=== PATIENT | female | born 1995 | race African-American/Black ===

== ENCOUNTER 2017-02-06 20:03 | Emergency (ER) | payer OTHER ==
[~2017-02-06 20:03] MED LIST: INSU100I13 SQ; INSU100I15 SQ; LISI-334 PO; METH5TAB6 PO; PROP60CA8 PO
[2017-02-06 20:15] VITALS: BP 138/88
--- NOTE | 2017-02-06 20:50 | ED.ADGEN ---
Past History Past Medical History: Diabetes, Other Past Surgical History: No Surgical History Alcohol Use: None Drug Use: None Adult General HPI HPI Patient is a 21-year-old woman, history of type 1 diabetes mellitus, diagnosed age 11, which she controls with both long-acting and short-acting insulin, and Graves' disease, for which she takes methimazole. Patient presents the emergency department with her mother with report of hypoglycemia. Per mother's report, she found the patient home, lying in bed, minimally responsive, and was concerned that her sugar was either very high or very low. She states daughter was not wearing her usual continuous monitoring bracelet, and she could not find the glucometer, therefore she called EMS arrived on scene and found an Accu -Chek of 26. Patient was given IM glucagon, glucose increased to 40 and 60, that point the patient was awake and alert, was able to take by mouth intake. Patient is ambulating upon arousing emergency department, GCS of 15, baseline mental status, denying all complaints. Accu-Chek in the ED is 223. Patient states that she last took her floor connecting a short acting insulin at 4:00 in the morning. She states she has not taken any insulin since that time, states that she had a decreased appetite today, and has not had much to eat or drink. Denies any fevers, any chills, any nausea or vomiting, any weakness, numbness, tingling, chest pain, shortness of breath, recent travel or surgery, any sick contacts or exposures. Review of Systems Review of Systems Constitutional: Denies fever or chills [] Eyes: Denies change in visual acuity, redness, or eye pain [] HENT: Denies nasal congestion or sore throat [] Respiratory: Denies cough or shortness of breath [] Cardiovascular: No additional information not addressed in HPI [] GI: Denies abdominal pain, nausea, vomiting, bloody stools or diarrhea [] : Denies dysuria or hematuria [] Musculoskeletal: Denies back pain or joint pain [] Integument: Denies rash or skin lesions [] Neurologic: Denies headache, focal weakness or sensory changes [] altered mental status with hyperglycemia which is now resolved. Endocrine: Denies polyuria or polydipsia [] Allergies Allergies Allergies Coded Allergies Type Severity Reaction Last Updated Verified amoxicillin Allergy Intermediate HIVES 01/19/15 No Physical Exam Physical Exam Constitutional: Well developed, well nourished, no acute distress, non-toxic appearance. [] HENT: Normocephalic, atraumatic, bilateral external ears normal, oropharynx moist, no oral exudates, nose normal. ] Eyes: PERRLA, EOMI, conjunctiva normal, no discharge. Mild exophthalmos. Neck: Normal range of motion, no tenderness, supple, no stridor. Cardiovascular:Heart rate regular rhythm, no murmur, S1, S2, rubs or gallops. [] Lungs & Thorax: Bilateral breath sounds clear to auscultation, no wheezing, rhonchi, rales. No chest or crepitus or tenderness. [] Abdomen: Bowel sounds normal, soft, no tenderness, no masses, no rebound, rigidity, no guarding, no pulsatile masses. [] Skin: Warm, dry, no erythema, no rash. [] Back: No tenderness, no CVA tenderness. [] Extremities: No tenderness, no cyanosis, no clubbing, ROM intact, no edema. Negative Homans sign. [] Neurologic: Alert and oriented X 3, normal motor function, normal sensory function, no focal deficits noted. [] Psychologic: Affect normal, judgement normal, mood normal. [] Current Patient Data Vital Signs Vital Signs Date Time Temp Pulse Resp B/P (MAP) Pulse Ox O2 Delivery O2 Flow Rate FiO2 02/06/17 20:15 98.0 110 20 97 Room Air Lab Results Laboratory Tests Test 02/06/17 20:15 02/06/17 21:37 02/06/17 21:40 02/06/17 22:18 Glucose (Fingerstick) 223 mg/dL (70-99) H 252 mg/dL (70-99) H POC Urine HCG, Qualitative hcg negative (Negative) White Blood Count 11.2 x10^3/uL (4.0-11.0) H Red Blood Count 4.97 x10^6/uL (3.50-5.40) Hemoglobin 13.2 g/dL (12.0-15.5) Hematocrit 40.3 % (36.0-47.0) Mean Corpuscular Volume 81 fL (79-100) Mean Corpuscular Hemoglobin 27 pg (25-35) Mean Corpuscular Hemoglobin Concent 33 g/dL (31-37) Red Cell Distribution Width 12.8 % (11.5-14.5) Platelet Count 264 x10^3/uL (140-400) Neutrophils (%) (Auto) 88 % (31-73) H Lymphocytes (%) (Auto) 10 % (24-48) L Monocytes (%) (Auto) 3 % (0-9) Eosinophils (%) (Auto) 0 % (0-3) Basophils (%) (Auto) 0 % (0-3) Neutrophils # (Auto) 9.8 x10^3uL (1.8-7.7) H Lymphocytes # (Auto) 1.1 x10^3/uL (1.0-4.8) Monocytes # (Auto) 0.3 x10^3/uL (0.0-1.1) Eosinophils # (Auto) 0.0 x10^3/uL (0.0-0.7) Basophils # (Auto) 0.0 x10^3/uL (0.0-0.2) Urine Collection Type Unknown Urine Color Straw Urine Clarity Clear Urine pH 5.0 Urine Specific [place] 1.015 Urine Protein Neg (NEG-TRACE) Urine Glucose (UA) 500 mg/dL (NEG) Urine Ketones (Stick) Neg mg/dL (NEG) Urine Blood Neg (NEG) Urine Nitrite Neg (NEG) Urine Bilirubin Neg (NEG) Urine Urobilinogen Dipstick 0.2 mg/dL (0.2 mg/dL) Urine Leukocyte Esterase Neg (NEG) Urine RBC 0 /HPF (0-2) Urine WBC 0 /HPF (0-4) Urine Squamous Epithelial Cells Occ /LPF Urine Bacteria 0 /HPF (0-FEW) Sodium Level 137 mmol/L (136-145) Potassium Level 4.4 mmol/L (3.5-5.1) Chloride Level 103 mmol/L (98-107) Carbon Dioxide Level 26 mmol/L (21-32) Anion Gap 8 (6-14) Blood Urea Nitrogen 11 mg/dL (7-20) Creatinine 0.6 mg/dL (0.6-1.0) Estimated GFR (Cockcroft-Gault) 149.9 Glucose Level 292 mg/dL (70-99) H Calcium Level 9.0 mg/dL (8.5-10.1) Urine Opiates Screen Neg (NEG) Urine Methadone Screen Neg (NEG) Urine Barbiturates Neg (NEG) Urine Phencyclidine Screen Neg (NEG) Urine Amphetamine/Methamphetamine Neg (NEG) Urine Benzodiazepines Screen Neg (NEG) Urine Cocaine Screen Neg (NEG) Urine Cannabinoids Screen Neg (NEG) Urine Ethyl Alcohol Neg (NEG) EKG EKG Not indicated. [] Radiology/Procedures Radiology/Procedures Chest x-ray: One view: Normal cardiac pulmonary silhouette, no infiltrates, no effusion, no soft tissue or bony abnormalities identified. As interpreted by me. [] Course & Med Decision Making Course & Med Decision Making Pertinent Labs and Imaging studies reviewed. (See chart for details) Lengthy discussion at bedside with patient and mother, patient has recently made gains in terms of exercise, lower her A1c, and is planning to follow up promptly with her safety consultant for likely adjustment of medication. I discussed with patient that I am concerned the fact that she has had no insulin since 4:00 in the morning, and is presenting with symptoms at this time that there may be more potentially then an iatrogenic cause. Patient states that she was feeling well, but however was seen this morning by her mother around 10:00 in the morning that time was feeling well. After discussion, patient is agreeable to receiving screening laboratory studies and evaluation in the emergency department to rule out any occult cause for hypoglycemia, with some observation and tracking of her glucose in the ED. Patient resting comfortably, with mother at bedside taking oral fluids. Urinalysis didn't reveal any evidence of infection, chest x-ray unremarkable, as were the remainder of laboratory studies, patient with a glucose of 293, electrolytes within normal limits. After over 2 hours of observation in the ED, patient remains comfortable , without any concerning symptoms, Accu-Chek is now 250. I did discuss findings as above with patient and mother at bedside, patient states she is feeling well , and would like to go home at this time, patient's mother states she will keep an eye on her overnight, patient will continue to use medications as directed, and will plan to follow-up promptly with the safety consultant for additional evaluation to determine if she requires adjustments of her regimen, patient will ensure that she eats regularly when taking her insulin. We discussed concerning symptoms that prompt return to the emergency department, patient voiced understanding and agreement, was provided with a work note, discharged home in stable condition with mother with plan and precautions as above. Final Impression Final Impression [] Problems: Dragon Disclaimer Dragon Disclaimer This electronic medical record was generated, in whole or in part, using a voice recognition dictation system. Departure: Disposition: HOME, SELF-CARE Condition: IMPROVED MICHELLE NICHOLE DO Feb 06, 2017 20:50
[2017-02-06 21:59] LABS: BASO % 0 % (0-3); EOS % 0 % (0-3); HEMATOCRIT 40.3 % (36.0-47.0); HEMOGLOBIN 13.2 g/dL (12.0-15.5); LYMPH # 1.1 x10^3/uL (1.0-4.8); LYMPH % 10 % (24-48); MEAN CORPUSCULAR HEMOGLOBIN 27 pg (25-35); MEAN CORPUSCULAR HGB CONC 33 g/dL (31-37); MEAN CORPUSCULAR VOLUME 81 fL (79-100); MONO # 0.3 x10^3/uL (0.0-1.1); MONO % 3 % (0-9); NEUT # 9.8 x10^3uL (1.8-7.7); NEUT % 88 % (31-73); PLATELET COUNT 264 x10^3/uL (140-400); RED BLOOD COUNT 4.97 x10^6/uL (3.50-5.40); RED CELL DISTRIBUTION WIDTH 12.8 % (11.5-14.5); WHITE BLOOD COUNT 11.2 x10^3/uL (4.0-11.0)
[2017-02-06 22:06] LABS: CREATININE 0.6 mg/dL (0.6-1.0); GFR 149.9; POTASSIUM 4.4 mmol/L (3.5-5.1)
[2017-02-06 22:09] LABS: BACTERIA,URINE 0 /HPF (0-FEW); BILIRUBIN,URINE NEG (NEG); CLARITY,URINE CLEAR; COLOR,URINE STRAW; GLUCOSE,URINE 500 mg/dL (NEG); NITRITE,URINE NEG (NEG); RBC,URINE 0 /HPF (0-2); SQUAMOUS EPITHELIAL CELL,UR OCC /LPF; UROBILINOGEN,URINE 0.2 mg/dL (0.2 mg/dL); WBC,URINE 0 /HPF (0-4)
[2017-02-06 22:14] LABS: BARBITURATES NEG (NEG); BENZODIAZEPINES NEG (NEG); CANNABINOIDS NEG (NEG); COCAINE NEG (NEG); METHADONE NEG (NEG); OPIATES NEG (NEG); PHENCYCLIDINE NEG (NEG)
[2017-02-06 22:15] LABS: AMPHETAMINE/METHAMPHETAMINE NEG (NEG)
--- NOTE | 2017-02-07 07:46 | RAD ---
Indication hypoglycemia. Change in mental status. Protocol study. A single view of the chest was obtained. No prior imaging is available. The heart and pulmonary vessels and mediastinum appear normal. The lungs are clear. IMPRESSION: No acute or focal process seen in the chest
== END 2017-02-06 22:33 | disposition home or self-care (01) ==
LOC: ER 20:03
DX: E10.649 Type 1 diabetes mellitus with hypoglycemia without coma (principal); R41.82 Altered mental status, unspecified; Z79.4 Long term (current) use of insulin; Z88.1 Allergy status to other antibiotic agents
CPT/HCPCS: 36415; 71010; 80048; 80305; 80320; 81001; 81025; 82947; 85027; G0481; 99285-25

== ENCOUNTER 2017-03-31 12:53 | Emergency (ER) | payer OTHER ==
[2017-03-31] MEDS ORDERED: IV NORMAL SALINE 1,000ML 1,000 ML IV ONE (13:30)
[2017-03-31 14:29] LABS: BASO % 0 % (0-3); EOS % 0 % (0-3); HEMATOCRIT 35.9 % (36.0-47.0); HEMOGLOBIN 12.1 g/dL (12.0-15.5); LYMPH # 1.2 x10^3/uL (1.0-4.8); LYMPH % 38 % (24-48); MEAN CORPUSCULAR HEMOGLOBIN 27 pg (25-35); MEAN CORPUSCULAR HGB CONC 34 g/dL (31-37); MEAN CORPUSCULAR VOLUME 79 fL (79-100); MONO # 0.3 x10^3/uL (0.0-1.1); MONO % 11 % (0-9); NEUT # 1.6 x10^3uL (1.8-7.7); NEUT % 51 % (31-73); PLATELET COUNT 252 x10^3/uL (140-400); RED BLOOD COUNT 4.56 x10^6/uL (3.50-5.40); RED CELL DISTRIBUTION WIDTH 12.8 % (11.5-14.5); WHITE BLOOD COUNT 3.1 x10^3/uL (4.0-11.0)
[2017-03-31 14:36] LABS: POTASSIUM ISTAT 4.5 mmol/L (3.5-5.0)
[2017-03-31 14:37] LABS: HEMOGLOBIN ISTAT 12.2 gm/dL
--- NOTE | 2017-03-31 14:43 | PHYS DOC ---
Past History Past Medical History: Diabetes, Hyperthyroid, Other Past Surgical History: No Surgical History Alcohol Use: None Drug Use: None Adult General Chief Complaint Chief Complaint: BLOOD SUGAR PROBLEM HPI HPI 21-year-old female with history of type 1 diabetes presents this morning after having low blood sugar symptomatically. She reports taking her clergy and insulin last night as normal which has not been changed for more than a week. Today she checked her blood sugar after feeling lightheaded and kind of sweaty it was reported to be 24. EMS was called. EMS gave IV dextrose which improved her blood sugar. Currently she is asymptomatic feeling much better. Onset today. Location blood. Duration intermittent. Alleviated by IV sugar. Review of systems is negative for chest pain shortness of breath abdominal pain nausea vomiting. All other review of systems is negative unless otherwise noted in history of present illness. ED course: 21-year-old female presenting with symptomatically hyperglycemia. Patient reports no increase in her insulin over the past week. She reports eating regularly including this morning. She denies any symptoms currently. Blood glucose upon arrival was 120. Otherwise blood work obtained which showed normal kidney function and otherwise unremarkable. negative. Urinalysis negative. Patient was given oral meal and then subsequent discharged home to follow up with her primary care physician. The patient was then discharged home in stable condition to follow up with their primary care physician over the next 2-3 days. They were to return if their symptoms worsened or if they were concerned for any reason. [id number] discharge instructions and return precautions were given. Patient's questions were answered to their satisfaction. Patient is comfortable plan. Review of Systems Review of Systems SEE ABOVE. Current Medications Current Medications Current Medications Medications (Trade) Dose Ordered Sig/Felicia Start Time Stop Time Status Last Admin Dose Admin Sodium Chloride 1,000 ml @ 1,000 mls/hr 1X ONCE 03/31/17 13:30 03/31/17 14:29 DC 03/31/17 14:12 1,000 MLS/HR Allergies Allergies Allergies Coded Allergies Type Severity Reaction Last Updated Verified amoxicillin Allergy Intermediate HIVES 01/19/15 No Physical Exam Physical Exam Constitutional: Well developed, well nourished, no acute distress, non-toxic appearance. [] HENT: Normocephalic, atraumatic, bilateral external ears normal, oropharynx moist, no oral exudates, nose normal. [] Eyes: PERRLA, EOMI, conjunctiva normal, no discharge. [] Neck: Normal range of motion, no tenderness, supple, no stridor. [] Cardiovascular:Heart rate regular rhythm, no murmur [] Lungs & Thorax: Bilateral breath sounds clear to auscultation [] Abdomen: Bowel sounds normal, soft, no tenderness, no masses, no pulsatile masses. [] Skin: Warm, dry, no erythema, no rash. [] Back: No tenderness, no CVA tenderness. [] Extremities: No tenderness, no cyanosis, no clubbing, ROM intact, no edema. [] Neurologic: Alert and oriented X 3, normal motor function, normal sensory function, no focal deficits noted. [] Psychologic: Affect normal, judgement normal, mood normal. [] Current Patient Data Vital Signs Vital Signs Date Time Temp Pulse Resp B/P (MAP) Pulse Ox O2 Delivery O2 Flow Rate FiO2 03/31/17 12:53 98.0 107 25 99 Room Air Lab Results Laboratory Tests Test 03/31/17 14:10 03/31/17 14:24 White Blood Count 3.1 x10^3/uL (4.0-11.0) L Red Blood Count 4.56 x10^6/uL (3.50-5.40) Hemoglobin 12.1 g/dL (12.0-15.5) POC Hemoglobin 12.2 gm/dL Hematocrit 35.9 % (36.0-47.0) L POC Hematocrit 36 % Mean Corpuscular Volume 79 fL (79-100) Mean Corpuscular Hemoglobin 27 pg (25-35) Mean Corpuscular Hemoglobin Concent 34 g/dL (31-37) Red Cell Distribution Width 12.8 % (11.5-14.5) Platelet Count 252 x10^3/uL (140-400) Neutrophils (%) (Auto) 51 % (31-73) Lymphocytes (%) (Auto) 38 % (24-48) Monocytes (%) (Auto) 11 % (0-9) H Eosinophils (%) (Auto) 0 % (0-3) Basophils (%) (Auto) 0 % (0-3) Neutrophils # (Auto) 1.6 x10^3uL (1.8-7.7) L Lymphocytes # (Auto) 1.2 x10^3/uL (1.0-4.8) Monocytes # (Auto) 0.3 x10^3/uL (0.0-1.1) Eosinophils # (Auto) 0.0 x10^3/uL (0.0-0.7) Basophils # (Auto) 0.0 x10^3/uL (0.0-0.2) POC Sodium 142 mmol/L (135-145) POC Potassium 4.5 mmol/L (3.5-5.0) POC Chloride 106 mmol/L (98-110) POC Total CO2 24 mmol/L (23-32) Anion Gap 17 mmol/L (6-14) H POC Blood Urea Nitrogen 7 mg/dL (8-26) L POC Creatinine 0.3 mg/dL (0.5-1.4) L Glucose Level 120 mg/dL (60-99) H POC Ionized Calcium (Antoine) 1.28 mmol/L (1.13-1.32) POC Urine HCG, Qualitative hcg negative (Negative) EKG EKG [] Radiology/Procedures Radiology/Procedures [] Course & Med Decision Making Course & Med Decision Making Pertinent Labs and Imaging studies reviewed. (See chart for details) [] Dragon Disclaimer Dragon Disclaimer This chart was dictated in whole or in part using Voice Recognition software in a busy, high-work load, and often noisy Emergency Department environment. It may contain unintended and wholly unrecognized errors or omissions. Departure Departure: Impression: Primary Impression: Hypoglycemia Additional Impression: Diabetic hypoglycemia Disposition: 01 HOME, SELF-CARE Condition: STABLE Referrals: NASRA HARDEN MD (PCP) Patient Instructions: Hypoglycemia (Low Blood Sugar) Additional Instructions: Thank you for allowing us to participate in your care today. Followup with your primary care physician in 3 days if your symptoms do not improve. Call your Primary Doctor tomorrow and inform them of your visit today. If you do not have a primary care provider you can ask for a list of our primary care providers. Return to the emergency department you have any new or concerning findings. This should be evaluated by the primary care physician and any necessary consulting services for continued management within a few days after discharge. Return to emergency room if you have any new or concerning symptoms including but not limited to fever, chills, nausea, vomiting, intractable pain, any new rashes, chest pain, shortness of air, uncontrolled bleeding, difficulty breathing, and/or vision loss. You may have been prescribed medication that can change in your level of thinking and ability to operate machinery. These medications include hydrocodone and Ativan. Also, Benadryl has been known to do this as well. Be sure to check with your pharmacist and ask if the medications you've prescribed can affect your level of consciousness. I recommend not operating heavy machinery or driving while on medication such as these. Problem Qualifiers VIVI FLORES MD Mar 31, 2017 14:43
[2017-03-31 14:44] LABS: ALBUMIN 2.9 g/dL (3.4-5.0); BILIRUBIN,URINE NEG (NEG); CLARITY,URINE HAZY; COLOR,URINE YELLOW; DIRECT BILIRUBIN 0.1 mg/dL (0.0-0.2); GLUCOSE,URINE 500 mg/dL (NEG); NITRITE,URINE NEG (NEG); TOTAL BILIRUBIN 0.4 mg/dL (0.2-1.0); TOTAL PROTEIN 6.4 g/dL (6.4-8.2); UROBILINOGEN,URINE 0.2 mg/dL (0.2 mg/dL)
[2017-03-31 14:45] LABS: BACTERIA,URINE FEW /HPF (0-FEW); SQUAMOUS EPITHELIAL CELL,UR MANY /LPF
[2017-03-31 14:58] VITALS: BP 132/79
== END 2017-03-31 15:20 | disposition home or self-care (01) ==
LOC: ER 12:53
DX: E10.649 Type 1 diabetes mellitus with hypoglycemia without coma (principal); E05.90 Thyrotoxicosis, unspecified without thyrotoxic crisis or storm; Z79.4 Long term (current) use of insulin; Z88.1 Allergy status to other antibiotic agents
CPT/HCPCS: 36415; 80047; 80076; 81001; 81025; 82947; 83690; 85025; 96360; 99284-25; J7030

== ENCOUNTER 2017-04-02 17:06 | Emergency (ER) | payer OTHER ==
[~2017-04-02] VITALS: Ht 165.1 cm; Wt 81.0 kg
[2017-04-02] MEDS ORDERED: FAMOTIDINE 20 MG/2 ML VIAL ONE (18:20)
[2017-04-02 18:26] LABS: BASO % 0 % (0-3); EOS % 0 % (0-3); HEMATOCRIT 41.8 % (36.0-47.0); LYMPH # 0.9 x10^3/uL (1.0-4.8); LYMPH % 12 % (24-48); MEAN CORPUSCULAR HEMOGLOBIN 26 pg (25-35); MEAN CORPUSCULAR HGB CONC 34 g/dL (31-37); MEAN CORPUSCULAR VOLUME 79 fL (79-100); MONO # 0.2 x10^3/uL (0.0-1.1); MONO % 3 % (0-9); NEUT # 6.3 x10^3uL (1.8-7.7); NEUT % 85 % (31-73); PLATELET COUNT 289 x10^3/uL (140-400); RED BLOOD COUNT 5.29 x10^6/uL (3.50-5.40); RED CELL DISTRIBUTION WIDTH 12.8 % (11.5-14.5); WHITE BLOOD COUNT 7.4 x10^3/uL (4.0-11.0)
[2017-04-02 18:29] LABS: ALBUMIN 3.7 g/dL (3.4-5.0); CREATININE 0.5 mg/dL (0.6-1.0); POTASSIUM 4.6 mmol/L (3.5-5.1); TOTAL BILIRUBIN 0.9 mg/dL (0.2-1.0); TOTAL PROTEIN 7.5 g/dL (6.4-8.2)
[2017-04-02] MEDS ORDERED: FAMOTIDINE 20 MG/2 ML VIAL IVP ONE (18:30)
[2017-04-02] MEDS ORDERED: IV NORMAL SALINE 1,000ML 1,000 ML IV ONE (18:30)
[2017-04-02] MEDS ORDERED: ONDANSETRON PF 4 MG/2 ML VIAL. IV ONE (19:30)
--- NOTE | 2017-04-02 20:18 | RAD ---
Ultrasound of the right upper quadrant of the abdomen 04/02/2017 Clinical history: Right upper quadrant abdominal pain. TECHNIQUE: A real-time ultrasound examination of the right upper quadrant of the abdomen was performed. Multiple images were obtained. FINDINGS: The gallbladder is well-distended. No gallstones are visualized. The gallbladder wall thickness is within normal limits. No pericholecystic fluid is seen. The common bile duct measures 2 mm in diameter which is within normal limits. The liver is normal in size measuring 15.2 cm in length. Mild intrahepatic biliary ductal dilatation is seen. No focal abnormality of the liver is noted. The visualized portions of the pancreas and right kidney are within normal limits. IMPRESSION: Mild intrahepatic biliary ductal dilatation. Electronically signed by: Ulices More MD (04/02/2017 8:15 PM) [facility]
[2017-04-02 20:30] VITALS: BP 130/57
[2017-04-02] MEDS ORDERED: HALOPERIDOL LACT 5 MG/ML VIAL. IVP ONE (20:30)
--- NOTE | 2017-04-02 22:17 | PHYS DOC ---
Past History Past Medical History: Diabetes Past Surgical History: No Surgical History Alcohol Use: Occasionally Drug Use: None Adult General Chief Complaint Chief Complaint: BLOOD SUGAR PROBLEM HPI HPI Patient is a 20-year-old insulin-dependent a female with history Graves' disease currently off of methimazole who presents with nausea and vomiting upon waking this morning. Patient last took insulin last evening. She has not been able to eat or drink today due to nausea and vomiting. She also reports epigastric pain tenderness. Patient also reports possible hypoglycemic episode this morning hitting her head. Patient denies headache, change of vision, neck pain. Blood sugar is 101 on ED arrival. No fever chills or sweats. Patient has active Graves' disease and was taken off methimazole in preparation for her radioactive iodine uptake thyroid ablation procedure. 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 Patient denies any other acute symptoms or complaints. She has no prior surgical history. Last menstrual period was 3 weeks ago. Patient was seen in the emergency department for low blood sugar episode 2 days ago and had a negative test at that time. Denies drugs and alcohol. Patient is accompanied at bedside by her mother. Review of Systems Review of Systems Review of symptoms as per history of present illness. All other review symptoms are negative. Current Medications Current Medications Current Medications Medications (Trade) Dose Ordered Sig/Felicia Start Time Stop Time Status Last Admin Dose Admin Famotidine (Pepcid) 20 mg STK-MED ONCE 04/02/17 18:20 04/02/17 18:21 DC Haloperidol Lactate (Haldol) 1.25 mg 1X ONCE 04/02/17 20:30 04/02/17 20:31 DC 04/02/17 20:27 1.25 MG Ondansetron HCl (Zofran) 8 mg 1X ONCE 04/02/17 19:30 04/02/17 19:31 DC 04/02/17 18:28 8 MG Sodium Chloride 1,000 ml @ 1,000 mls/hr 1X ONCE 04/02/17 18:30 04/02/17 19:29 DC 04/02/17 18:27 1,000 MLS/HR Allergies Allergies Allergies Coded Allergies Type Severity Reaction Last Updated Verified amoxicillin Allergy Intermediate HIVES 01/19/15 No Physical Exam Physical Exam Constitutional: Well developed, well nourished, no acute distress, non-toxic appearance. [] HENT: Normocephalic, atraumatic, bilateral external ears normal, oropharynx moist, no oral exudates, nose normal. [] Eyes: PERRLA, EOMI, exophthalmos, conjunctiva normal, no discharge. [] Neck: Normal range of motion, no tenderness, supple, no stridor. [] Cardiovascular: Tachycardic [] Lungs & Thorax: Bilateral breath sounds clear to auscultation [] Abdomen: Bowel sounds normal, soft, epigastric/right upper quadrant pain, tenderness, no masses, no pulsatile masses. [] Skin: Warm, dry, no erythema, no rash. [] Back: No tenderness, no CVA tenderness. [] Extremities: No tenderness, no cyanosis, no clubbing, ROM intact, no edema. [] Neurologic: Alert and oriented X 3, normal motor function, normal sensory function, no focal deficits noted. [] Psychologic: Affect, anxious. [] Current Patient Data Vital Signs Vital Signs Date Time Temp Pulse Resp B/P (MAP) Pulse Ox O2 Delivery O2 Flow Rate FiO2 04/02/17 20:30 131 16 130/57 (81) 99 Room Air 04/02/17 17:28 98.7 Lab Results Laboratory Tests Test 04/02/17 17:25 04/02/17 17:52 04/02/17 19:27 Glucose (Fingerstick) 101 mg/dL (70-99) H White Blood Count 7.4 x10^3/uL (4.0-11.0) # Red Blood Count 5.29 x10^6/uL (3.50-5.40) Hemoglobin 14.0 g/dL (12.0-15.5) Hematocrit 41.8 % (36.0-47.0) Mean Corpuscular Volume 79 fL (79-100) Mean Corpuscular Hemoglobin 26 pg (25-35) Mean Corpuscular Hemoglobin Concent 34 g/dL (31-37) Red Cell Distribution Width 12.8 % (11.5-14.5) Platelet Count 289 x10^3/uL (140-400) Neutrophils (%) (Auto) 85 % (31-73) H Lymphocytes (%) (Auto) 12 % (24-48) L Monocytes (%) (Auto) 3 % (0-9) Eosinophils (%) (Auto) 0 % (0-3) Basophils (%) (Auto) 0 % (0-3) Neutrophils # (Auto) 6.3 x10^3uL (1.8-7.7) Lymphocytes # (Auto) 0.9 x10^3/uL (1.0-4.8) L Monocytes # (Auto) 0.2 x10^3/uL (0.0-1.1) Eosinophils # (Auto) 0.0 x10^3/uL (0.0-0.7) Basophils # (Auto) 0.0 x10^3/uL (0.0-0.2) Platelet Estimate Pending Sodium Level 139 mmol/L (136-145) Potassium Level 4.6 mmol/L (3.5-5.1) Chloride Level 104 mmol/L (98-107) Carbon Dioxide Level 25 mmol/L (21-32) Anion Gap 10 (6-14) Blood Urea Nitrogen 10 mg/dL (7-20) Creatinine 0.5 mg/dL (0.6-1.0) L Estimated GFR (Cockcroft-Gault) 185.0 BUN/Creatinine Ratio 20 (6-20) Glucose Level 101 mg/dL (70-99) H Calcium Level 10.0 mg/dL (8.5-10.1) Total Bilirubin 0.9 mg/dL (0.2-1.0) Aspartate Amino Transferase (AST) 32 U/L (15-37) Alanine Aminotransferase (ALT) 67 U/L (14-59) H Alkaline Phosphatase 139 U/L (46-116) H Total Protein 7.5 g/dL (6.4-8.2) Albumin 3.7 g/dL (3.4-5.0) Albumin/Globulin Ratio 1.0 (1.0-1.7) Lipase 46 U/L (73-393) L Maternal Serum HCG Beta Subunit 1 mIU/mL (0-6) EKG EKG [EKG: Sinus tach, rate 131, no acute ST-T wave changes, left atrial abnormality , QTC 448. No acute ST-T wave changes. EKG interpreted by this physician.] Radiology/Procedures Radiology/Procedures [Gallbladder ultrasound: Distended gallbladder, no pericholecystic fluid, gallbladder wall thickening, ductal dilatation per radiology report.] Course & Med Decision Making Course & Med Decision Making Pertinent Labs and Imaging studies reviewed. (See chart for details) [Patient nausea and vomiting improved while in the ED. She is euglycemic without current evidence of DKA. Patient remains tachycardic and is anxious with concern for thyrotoxicosis. Unfortunately, TSH and T3-T4 labs are send outs at this facility. Case reviewed with Dr. Parker billing collections specialist for internal medicine. Recommendations are to transferred patient to a facility with endocrinology. Dr. Alvarado at [facility] accepts patient. Her condition at time of transfer is stable ] Dragon Disclaimer Dragon Disclaimer This chart was dictated in whole or in part using Voice Recognition software in a busy, high-work load, and often noisy Emergency Department environment. It may contain unintended and wholly unrecognized errors or omissions. Departure Departure: Impression: Primary Impression: Thyrotoxicosis Additional Impression: Nausea & vomiting Disposition: 02 XFER [facility] Condition: STABLE Referrals: NASRA HARDEN MD (PCP) Problem Qualifiers JAJA NELSON DO Apr 02, 2017 22:17
[2017-04-02 22:54] LABS: % LYMPHS 14 % (24-48); % MONOS 1 % (0-10); % SEGS 85 % (35-66)
[2017-04-02 23:09] LABS: PLT ESTIMATE ADEQUATE (ADEQUATE)
--- NOTE | 2017-04-03 07:15 | EKG ---
[address] [address] Test Date: 2017-04-02 Test Time: 21:09:20 Pat Name: JOSE KRAMER Department: Room: Gender: F Vegetable Cook: : 1995 Requested By: JAJA NELSON Order Number: [id number] Reading MD: Slade Garcia Measurements Intervals [place] Rate: 131 P: 90 [place]: 122 QRS: 23 QRSD: 88 T: 64 QT: 300 QTc: 448 Interpretive Statements SINUS TACHYCARDIA Electronically Signed On 04-09-2017 10:09:20 CDT by Slade Garcia
== END 2017-04-02 22:44 | disposition short-term general hospital (02) ==
LOC: ER 17:06
DX: E05.00 Thyrotoxicosis with diffuse goiter without thyrotoxic crisis or storm (principal); R11.2 Nausea with vomiting, unspecified; E11.9 Type 2 diabetes mellitus without complications; Z88.1 Allergy status to other antibiotic agents
CPT/HCPCS: 36415; 76705; 80053; 82947; 83690; 84702; 85007; 85025; 93005; 96361; 96374; 96375; 99285; J1630; J2405; S0028; J7030

== ENCOUNTER 2017-12-03 05:14 | Emergency (ER) | payer OTHER, BC ==
[~2017-12-03] VITALS: Ht 165.1 cm; Wt 80.4 kg
--- NOTE | 2017-12-03 05:18 | ED.ADGEN ---
Past History Past Medical History: Diabetes Past Surgical History: No Surgical History Alcohol Use: Occasionally Drug Use: None Adult General Chief Complaint Chief Complaint ".. I ve been tired... and just completed final.. and I ve been nauseate the last two days..." HPI HPI Patient is a 22 year old female who presents with above hx and complains of nausea. Pt. has hx. of DM type I and tyroid disorder. Pt. does also have hx of depression and anxiety. Pt. denies bad food, travel, specific ill contact. Glucose level have been 200-400 recently while taking finals. Pt. current glucose is 106. Last ate at 1800 hrs. Pt. has mild epigastric discomfort. No hx dark stools. Pt. denies any current suicidal ideation. Pt. unable to produce urine on initial ED encounter. Mother is at bedside. Review of Systems Review of Systems Constitutional: Denies fever or chills [] Eyes: Denies change in visual acuity, redness, or eye pain [] HENT: Denies nasal congestion or sore throat [] Respiratory: Denies cough or shortness of breath [] Cardiovascular: No additional information not addressed in HPI [] GI: epigastric abdominal pain,. Denies vomiting, bloody stools or diarrhea [] Complaints of nausea. : Denies dysuria or hematuria [] Musculoskeletal: Denies back pain or joint pain [] Integument: Denies rash or skin lesions [] Neurologic: Denies headache, focal weakness or sensory changes [] Endocrine: Denies polyuria or polydipsia [] All other systems were reviewed and found to be within normal limits, except as documented in this note. Family History Family History Non-contributory Current Medications Current Medications Current Medications Medications (Trade) Dose Ordered Sig/Felicia Start Time Stop Time Status Last Admin Dose Admin Famotidine (Pepcid) 20 mg 1X ONCE 12/03/17 06:00 12/03/17 06:01 Lactated Ringer's 1,000 ml @ 1,000 mls/hr Q1H 12/03/17 06:00 12/03/17 06:59 Ondansetron HCl (Zofran Odt) 8 mg 1X ONCE 12/03/17 05:45 12/03/17 05:46 Allergies Allergies Allergies Coded Allergies Type Severity Reaction Last Updated Verified amoxicillin Allergy Intermediate HIVES 6/30/15 No Physical Exam Physical Exam Constitutional: mild distress, non-toxic appearance. [] HENT: Normocephalic, atraumatic, bilateral external ears normal, oropharynx dry , no oral exudates, nose normal. [] Eyes: PERRLA, EOMI, conjunctiva normal, no discharge. [] Neck: Normal range of motion, no tenderness, supple, no stridor. []Palpable thyroid. Cardiovascular:Heart rate regular rhythm, no murmur [] Lungs & Thorax: Bilateral breath sounds equal at apex auscultation [] Abdomen: Bowel sounds normal, soft, mild epigastric tenderness, no masses, no pulsatile masses. [] Skin: Warm, dry, no erythema, no rash. [] Back: No tenderness, no CVA tenderness. [] Extremities: No tenderness, no cyanosis, no clubbing, ROM intact, no edema. [] No psoas or obturator. Neurologic: Alert and oriented X 3, normal motor function, normal sensory function, no focal deficits noted. [] Psychologic: Affect flat, judgement normal, mood normal. [] EKG EKG [] Radiology/Procedures Radiology/Procedures [] Course & Med Decision Making Course & Med Decision Making Pertinent Labs and Imaging studies reviewed. (See chart for details). Labs pending at 0600. Reviewed pt. with Dr. Wooten- He will make disposition of pt. [] Final Impression Final Impression 1. Nausea[] Dragon Disclaimer Dragon Disclaimer This electronic medical record was generated, in whole or in part, using a voice recognition dictation system. TAYLOR HENDRIX MD December 03, 2017 05:18
[2017-12-03] MEDS ORDERED: ONDANSETRON ODT 4 MG TAB.RAPDIS PO ONE ×2 (05:45→06:00)
[2017-12-03] MEDS ORDERED: FAMOTIDINE 20 MG TABLET PO ONE (06:00)
[2017-12-03] MEDS ORDERED: IV RINGERS SOLUTION,LACTATED 1,000 ML IV SCH (06:00)
--- NOTE | 2017-12-03 06:08 | PHYS DOC ---
Past History Past Medical History: Diabetes Past Surgical History: No Surgical History Alcohol Use: Occasionally Drug Use: None Adult General Chief Complaint Chief Complaint: NAUSEA/VOMITING/DIARRHEA HPI HPI I am taking over this patient in signout from Dr. Elizondo. Please see his note for further information. Patient is a 22-year-old female that presents with mild epigastric pain and nausea. He is a type I diabetic and his blood sugar is currently controlled. Review of Systems Review of Systems Constitutional: Denies fever or chills [] Eyes: Denies change in visual acuity, redness, or eye pain [] HENT: Denies nasal congestion or sore throat [] Respiratory: Denies cough or shortness of breath [] Cardiovascular: No additional information not addressed in HPI [] GI: epigastric pain, nausea [] : Denies dysuria or hematuria [] Musculoskeletal: Denies back pain or joint pain [] Integument: Denies rash or skin lesions [] Neurologic: Denies headache, focal weakness or sensory changes [] Endocrine: Denies polyuria or polydipsia [] All other systems were reviewed and found to be within normal limits, except as documented in this note. Current Medications Current Medications Current Medications Medications (Trade) Dose Ordered Sig/Felicia Start Time Stop Time Status Last Admin Dose Admin Famotidine (Pepcid) 20 mg 1X ONCE 12/03/17 06:00 12/03/17 06:01 Lactated Ringer's 1,000 ml @ 1,000 mls/hr Q1H 12/03/17 06:00 12/03/17 06:59 Ondansetron HCl (Zofran Odt) 8 mg 1X ONCE 12/03/17 05:45 12/03/17 05:46 DC Allergies Allergies Allergies Coded Allergies Type Severity Reaction Last Updated Verified amoxicillin Allergy Intermediate HIVES 01/19/15 No Penicillins Allergy Unknown 12/03/17 Yes Physical Exam Physical Exam Constitutional: Well developed, well nourished, no acute distress, non-toxic appearance. [] HENT: Normocephalic, atraumatic, bilateral external ears normal, oropharynx moist, no oral exudates, nose normal. [] Eyes: PERRLA, EOMI, conjunctiva normal, no discharge. [] Neck: Normal range of motion, no tenderness, supple, no stridor. [] Cardiovascular:Heart rate regular rhythm, no murmur [] Lungs & Thorax: Bilateral breath sounds clear to auscultation [] Abdomen: Bowel sounds normal, soft, mild epigastric tenderness. [] Skin: Warm, dry, no erythema, no rash. [] Back: No tenderness, no CVA tenderness. [] Extremities: No tenderness, no cyanosis, no clubbing, ROM intact, no edema. [] Neurologic: Alert and oriented X 3, normal motor function, normal sensory function, no focal deficits noted. [] Psychologic: Affect normal, judgement normal, mood normal. [] Current Patient Data Lab Results Laboratory Tests Test 12/03/17 05:41 Glucose (Fingerstick) 108 mg/dL (70-99) H EKG EKG [] Radiology/Procedures Radiology/Procedures CT ABD PELV W/ IV CONTRST ONLY Indication: [id number] Omni 300 75cc: Epigastric pain, nausea x 1 week, borderline hepatomegaly on ultrasound today Exposure: One or more of the following individualized dose reduction techniques were utilized for this examination: 1. Automated exposure control 2. Adjustment of the mA and/or kV according to patient size 3. Use of iterative reconstruction technique. Comparison: None are available. Contrast: Intravenous contrast. No oral contrast per request. Lower thorax: Lung bases are clear. Pneumoperitoneum:No gross pneumoperitoneum. Liver: Liver measures about 16 cm cephalocaudal without focal lesion. Note there is mild periportal low-density, surrounding the portal venous structures. Spleen: Borderline enlarged, 12.5 cm. Pancreas: Unremarkable Adrenals:No evidence of mass. Kidneys:Unremarkable Gallbladder: Poorly distended. Mild low-density surrounding the gallbladder. No calcified stone. Aorta: Abdominal aorta is nonaneurysmal Lymph nodes: No significant enlargement GI tract: No bowel obstruction. Gastric wall thickening, likely due to incomplete distention. No evidence of an acute colitis. A structure which may represent a noninflamed appendix is seen in the right lower quadrant. Visualization is difficult due to the lack of much fat and lack of oral contrast. Ascites: No gross ascites. Urinary bladder: Mild wall thickening considering the degree of distention. No evidence of pelvic mass. Bones: No destructive process. IMPRESSION: 1. Mild periportal low density or edema in the liver. Finding is nonspecific, can be associated with hepatitis. 2. Borderline splenomegaly. 3. Mild low-density around the gallbladder compatible with mild wall thickening or fluid. No calcified gallstone. 4. Mild urinary bladder wall thickening, correlate for mild cystitis. Electronically signed by: Bonilla Rocha MD (12/03/2017 11:15 AM) [id number] LIMITED ABDOMINAL ULTRASOUND History: Right upper quadrant pain, nausea, elevated liver enzymes. Comparison: Ultrasound abdomen April 08, 2011 Procedure: Transabdominal ultrasound images are obtained. Findings: Examination is technically difficult secondary to bowel gas. Visualized pancreas is unremarkable. Liver is normal in echogenicity. No focal hepatic masses are identified. Right hepatic lobe measures 16.2 cm in length, borderline enlarged. Gallbladder appears partially contracted. No cholelithiasis or cholecystitis is seen. Common bile duct measures normally at 2 mm in diameter. Right kidney measures 11.9 cm in length. There is no evidence of stone or hydronephrosis. Visualized IVC demonstrates normal caliber. Impression: 1. Borderline hepatomegaly. Electronically signed by: Bonilla Suárez MD (12/03/2017 8:45 AM) [facility] [] Course & Med Decision Making Course & Med Decision Making Pertinent Labs and Imaging studies reviewed. (See chart for details) Since being in the ED, she has had difficulty providing urine. We will hydrate her. The patient has extremely elevated AST, ALT, bili and direct bili. I'm concerned for gall stone obstruction. I ordered right upper quadrant ultrasound. The ultrasound shows no gallbladder dysfunction. Common bile duct is normal in caliber. No stones were seen. I will order CT of the abdomen and pelvis to rule out any other potential causes of obstruction given her elevated bilirubin and direct bilirubin. CT scan showed mildly thickened gallbladder wall , but no other abnormalities. Acute hepatitis is still in the differential. I discussed the case with the hospitalist, Dr. Parker and he would like the patient transferred to [facility] for further evaluation and management. Discussed this with the patient and she is willing to be transferred for admission. She will go by ambulance. [] Dragon Disclaimer Dragon Disclaimer This electronic medical record was generated, in whole or in part, using a voice recognition dictation system. Departure Departure: Referrals: NASRA HARDEN MD (PCP) JAJA CACERES DO December 03, 2017 06:08
[2017-12-03 07:14] LABS: BASO % 1 % (0-3); EOS % 0 % (0-3); HEMOGLOBIN 13.6 g/dL (12.0-15.5); LYMPH # 1.9 x10^3/uL (1.0-4.8); LYMPH % 47 % (24-48); MEAN CORPUSCULAR HEMOGLOBIN 28 pg (25-35); MEAN CORPUSCULAR HGB CONC 33 g/dL (31-37); MEAN CORPUSCULAR VOLUME 85 fL (79-100); MONO # 0.6 x10^3/uL (0.0-1.1); MONO % 14 % (0-9); NEUT # 1.6 x10^3uL (1.8-7.7); NEUT % 39 % (31-73); PLATELET COUNT 259 x10^3/uL (140-400); RED BLOOD COUNT 4.83 x10^6/uL (3.50-5.40); RED CELL DISTRIBUTION WIDTH 16.5 % (11.5-14.5); WHITE BLOOD COUNT 4.1 x10^3/uL (4.0-11.0)
[2017-12-03 07:33] LABS: ALBUMIN 2.8 g/dL (3.4-5.0); CALCIUM 8.5 mg/dL (8.5-10.1); CREATININE 0.5 mg/dL (0.6-1.0); DIRECT BILIRUBIN 2.8 mg/dL (0.0-0.2); GFR 183.4
[2017-12-03 07:38] LABS: TOTAL BILIRUBIN 3.6 mg/dL (0.2-1.0)
[2017-12-03 08:35] LABS: BARBITURATES NEG (NEG); BENZODIAZEPINES NEG (NEG); CANNABINOIDS NEG (NEG); COCAINE NEG (NEG); METHADONE NEG (NEG); OPIATES NEG (NEG); PHENCYCLIDINE NEG (NEG)
[2017-12-03 08:36] LABS: AMPHETAMINE/METHAMPHETAMINE NEG (NEG)
[2017-12-03] MEDS ORDERED: PROCHLORPERAZINE 10 MG/2 ML VIAL. IM ONE (08:40)
[2017-12-03 08:41] LABS: BACTERIA,URINE 0 /HPF (0-FEW); BILIRUBIN,URINE SMALL (NEG); CLARITY,URINE CLEAR; COLOR,URINE AMBER; GLUCOSE,URINE NEG (NEG); NITRITE,URINE NEG (NEG); UROBILINOGEN,URINE 0.2 mg/dL (0.2 mg/dL); WBC,URINE RARE /HPF (0-4)
[2017-12-03 08:42] LABS: SQUAMOUS EPITHELIAL CELL,UR FEW /LPF
--- NOTE | 2017-12-03 08:48 | RAD ---
LIMITED ABDOMINAL ULTRASOUND History: Right upper quadrant pain, nausea, elevated liver enzymes. Comparison: Ultrasound abdomen April 08, 2011 Procedure: Transabdominal ultrasound images are obtained. Findings: Examination is technically difficult secondary to bowel gas. Visualized pancreas is unremarkable. Liver is normal in echogenicity. No focal hepatic masses are identified. Right hepatic lobe measures 16.2 cm in length, borderline enlarged. Gallbladder appears partially contracted. No cholelithiasis or cholecystitis is seen. Common bile duct measures normally at 2 mm in diameter. Right kidney measures 11.9 cm in length. There is no evidence of stone or hydronephrosis. Visualized IVC demonstrates normal caliber. Impression: 1. Borderline hepatomegaly. Electronically signed by: Bonilla Suárez MD (12/03/2017 8:45 AM) [place] [id number]
[2017-12-03] MEDS ORDERED: IOHEXOL 300 MG/ML 75 ML VIAL. IV ONE (10:30)
--- NOTE | 2017-12-03 11:18 | RAD ---
CT ABD PELV W/ IV CONTRST ONLY Indication: [id number] Omni 300 75cc: Epigastric pain, nausea x 1 week, borderline hepatomegaly on ultrasound today Exposure: One or more of the following individualized dose reduction techniques were utilized for this examination: 1. Automated exposure control 2. Adjustment of the mA and/or kV according to patient size 3. Use of iterative reconstruction technique. Comparison: None are available. Contrast: Intravenous contrast. No oral contrast per request. Lower thorax: Lung bases are clear. Pneumoperitoneum:No gross pneumoperitoneum. Liver: Liver measures about 16 cm cephalocaudal without focal lesion. Note there is mild periportal low-density, surrounding the portal venous structures. Spleen: Borderline enlarged, 12.5 cm. Pancreas: Unremarkable Adrenals:No evidence of mass. Kidneys:Unremarkable Gallbladder: Poorly distended. Mild low-density surrounding the gallbladder. No calcified stone. Aorta: Abdominal aorta is nonaneurysmal Lymph nodes: No significant enlargement GI tract: No bowel obstruction. Gastric wall thickening, likely due to incomplete distention. No evidence of an acute colitis. A structure which may represent a noninflamed appendix is seen in the right lower quadrant. Visualization is difficult due to the lack of much fat and lack of oral contrast. Ascites: No gross ascites. Urinary bladder: Mild wall thickening considering the degree of distention. No evidence of pelvic mass. Bones: No destructive process. IMPRESSION: 1. Mild periportal low density or edema in the liver. Finding is nonspecific, can be associated with hepatitis. 2. Borderline splenomegaly. 3. Mild low-density around the gallbladder compatible with mild wall thickening or fluid. No calcified gallstone. 4. Mild urinary bladder wall thickening, correlate for mild cystitis. Electronically signed by: Bonilla Rocha MD (12/03/2017 11:15 AM) [facility]
[2017-12-03 14:12] VITALS: BP 134/80
== END 2017-12-03 14:31 | disposition short-term general hospital (02) ==
LOC: ER 05:14
DX: R16.0 Hepatomegaly, not elsewhere classified (principal); R74.0 Nonspecific elevation of levels of transaminase and lactic acid dehydrogenase [LDH]; R74.8 Abnormal levels of other serum enzymes; E80.7 Disorder of bilirubin metabolism, unspecified; E10.9 Type 1 diabetes mellitus without complications; F32.9 Major depressive disorder, single episode, unspecified; F41.9 Anxiety disorder, unspecified; Z88.0 Allergy status to penicillin; Z88.1 Allergy status to other antibiotic agents
CPT/HCPCS: 36415; 74177; 76705; 80048; 80076; 80307; 81001; 82150; 82947; 83690; 84443; 85025; 96372; 99285; J0780; J7120; Q0162; Q9967; G0479

== ENCOUNTER 2018-02-20 23:01 | Emergency (ER) | payer OTHER, BC ==
[~2018-02-20] VITALS: Ht 165.1 cm; Wt 83.9 kg
[2018-02-20 23:05] VITALS: BP 146/81
[2018-02-21] MEDS ORDERED: AZITHROMYCIN 250 MG TABLET. PO ONE (00:30)
[2018-02-21] MEDS ORDERED: AZIT250T PO (00:32)
--- NOTE | 2018-02-21 00:33 | PHYS DOC ---
Past History Past Medical History: Diabetes, Other Past Surgical History: Other Alcohol Use: Occasionally Drug Use: None Adult General Chief Complaint Chief Complaint: SORE THROAT HPI HPI Patient is a [22] year old [female] who presents with complaining of sore throat. Patient complaining of sore throat for the last 3 days as a constant pain with subjective fever without cough and congestion or shortness of breath and sick contact.[ Patient denies sick contact.] Review of Systems Review of Systems Constitutional: Denies fever or chills [] Eyes: Denies change in visual acuity, redness, or eye pain [] HENT: Denies nasal congestion , reports sore throat [] Respiratory: Denies cough or shortness of breath [] Cardiovascular: No additional information not addressed in HPI [] GI: Denies abdominal pain, nausea, vomiting, bloody stools or diarrhea [] : Denies dysuria or hematuria [] Musculoskeletal: Denies back pain or joint pain [] Integument: Denies rash or skin lesions [] Neurologic: Denies headache, focal weakness or sensory changes [] Endocrine: Denies polyuria or polydipsia [] All other systems were reviewed and found to be within normal limits, except as documented in this note. Current Medications Current Medications Current Medications Medications (Trade) Dose Ordered Sig/Felicia Start Time Stop Time Status Last Admin Dose Admin Azithromycin (Zithromax) 500 mg 1X ONCE 02/21/18 00:15 02/21/18 00:16 UNV Allergies Allergies Allergies Coded Allergies Type Severity Reaction Last Updated Verified Penicillins Allergy Intermediate Hives 12/03/17 Yes amoxicillin Allergy Intermediate HIVES 01/19/15 No Physical Exam Physical Exam Constitutional: Well developed, well nourished, mild distress, non-toxic appearance. [] HENT: Normocephalic, atraumatic, bilateral external ears normal, enlarge tonsils , more in right side, oropharynx moist, no oral exudates, nose normal. [] Eyes: PERRLA, EOMI, conjunctiva normal, no discharge. [] Neck: Normal range of motion, no tenderness, supple, no stridor, cervical lymphadenopathy. [] Cardiovascular:Heart rate regular rhythm, no murmur [] Lungs & Thorax: Bilateral breath sounds clear to auscultation [] Skin: Warm, dry, no erythema, no rash. [] Extremities: No tenderness, no cyanosis, no clubbing, ROM intact, no edema. [] Neurologic: Alert and oriented X 3, normal motor function, normal sensory function, no focal deficits noted. [] Psychologic: Affect normal, judgement normal, mood normal. [] Current Patient Data Vital Signs Vital Signs Date Time Temp Pulse Resp B/P (MAP) Pulse Ox O2 Delivery O2 Flow Rate FiO2 02/20/18 23:05 98.9 63 16 98 Room Air EKG EKG [] Radiology/Procedures Radiology/Procedures [] Course & Med Decision Making Course & Med Decision Making discharge: I've spoken with the patient and/or caregivers. I've explained the patient's condition, diagnosis and treatment plan based on information available to me at this time. I've answered the patient's and/or caregivers questions and addressed any concerns. The patient and/or caregivers have a good understanding the patient's diagnosis, condition and treatment plan as can be expected at this point. Vital signs have been stabilized. The patient's condition is stable for discharge from the emergency department. The patient will pursue further outpatient evaluation with her primary care provider or other designated consulting physician as outlined in the discharge instructions. Patient and/or caregivers are agreeable to this plan of care and follow-up instructions have been explained in detail. The patient and/or caregivers have received these instructions in written format and expressed understanding of these discharge instructions. The patient and her caregivers are aware that if any significant change in condition or worsening of symptoms should prompt him to immediately return to this of the closest emergency department. If an emergent department is not readily available I would encourage him to call 911. Annetteon Disclaimer Dragon Disclaimer This electronic medical record was generated, in whole or in part, using a voice recognition dictation system. Departure Departure: Impression: Primary Impression: Acute pharyngitis Disposition: HOME, SELF-CARE (at 0031) Condition: STABLE Referrals: NASRA HARDEN MD (PCP) Patient Instructions: Viral and Bacterial Pharyngitis Additional Instructions: Drink plenty of liquids Follow-up with your primary care physician in 3-5 days Return to ER if not getting better Scripts Azithromycin (ZITHROMAX) 250 Mg Tablet 1 PKG PO UD, #1 PKG Prov: RINKU NEWELL MD 02/21/18 RINKU NEWELL MD Feb 21, 2018 00:33
== END 2018-02-21 00:42 | disposition home or self-care (01) ==
LOC: ER 23:01
DX: J02.9 Acute pharyngitis, unspecified (principal); E11.9 Type 2 diabetes mellitus without complications; Z88.0 Allergy status to penicillin; Z88.1 Allergy status to other antibiotic agents
CPT/HCPCS: 87880; 99283; J0456

== ENCOUNTER 2019-05-15 15:59 | Emergency (ER) | payer OTHER ==
[~2019-05-15] VITALS: Ht 165.1 cm; Wt 81.6 kg
[~2019-05-15 15:59] MED LIST changes: +AZIT250T PO; +PROP60CA36 PO; -PROP60CA8 PO
--- NOTE | 2019-05-15 16:33 | PHYS DOC ---
Past History Past Medical History: Anxiety, Depression, Diabetes, Other Past Surgical History: Other Smoking: Non-smoker Alcohol Use: Occasionally Drug Use: None Adult General Chief Complaint Chief Complaint: SUICDAL IDEATION HPI HPI the patient is a pleasant 23-year-old female who presents to the emergency [facility] for evaluation. She states that she has been having suicidal thoughts for the past while, related to anxiety and stress at work, in the setting of underlying chronic anxiety and depression. She states that she has had increasing thoughts of "ending it all". She does not have an active plan, she does not own firearms. She takes BuSpar and Lexapro for anxiety and depression. She does not have any hallucinations. She denies any drug or alcohol use of significance. There are no alleviating or exacerbating factors to her symptoms. She states that she has never been hospitalized before and has no prior suicide attempts. She is agreeable to hospitalization to help manage her symptoms. She is somewhat tearful on initial presentation and interviewed. Patient is a type I diabetic. She states that she has been generally compliant with her insulin, but did not take her insulin today, but did eat a lot of carbohydrates. She states she normally takes 1 unit of insulin for every 8 g of carbohydrates that she eats. She also takes 40 units of Lantus at bedtime. Review of Systems Review of Systems Constitutional: Denies fever or chills [] Eyes: Denies change in visual acuity, redness, or eye pain [] HENT: Denies nasal congestion or sore throat [] Respiratory: Denies cough or shortness of breath [] Cardiovascular: The patient denies any shortness of breath, chest pain, palpitations, or orthopnea [] GI: Denies abdominal pain, nausea, vomiting, bloody stools or diarrhea [] : Denies dysuria or hematuria. Currently on menses. [] Musculoskeletal: Denies back pain or joint pain [] Integument: Denies rash or skin lesions [] Neurologic: Denies headache, focal weakness or sensory changes [] Endocrine: Denies polyuria or polydipsia [] All other systems were reviewed and found to be within normal limits, except as documented in this note. Allergies Allergies Allergies Coded Allergies Type Severity Reaction Last Updated Verified Penicillins Allergy Intermediate Hives 12/03/17 Yes amoxicillin Allergy Intermediate HIVES 01/19/15 No Physical Exam Physical Exam PHYSICAL EXAM: CONSTITUTIONAL: Well developed, well nourished HEAD: normocephalic, atraumatic EENT: PERRL, EOMI. Conjunctivae normal color, sclerae non-icteric; moist mucous membranes. NECK: Supple, non-tender; no meningismus. LUNGS: Lungs CTA, breathing even and unlabored. Normal air movement. HEART: Regular rate and rhythm, no murmur CHEST: No deformity; non-tender ABDOMEN: The abdomen is soft, and non-tender, no masses or bruits. EXTREM: Normal ROM; no deformity, no calf tenderness. Normal pulses palpable in all extremities. There is no pedal edema. SKIN: No rash; no diaphoresis NEURO: Alert; normal speech and cognition; CN's grossly intact; strength grossly intact without focal deficit. BACK: No CVA TTP. PSYCHIATRIC: Depressed affect, voices suicidal ideation, without a plan. Tearful. Linear thought processes without sign of psychosis. EKG EKG []Normal sinus rhythm a rate of 83 bpm, normal axis, normal intervals. Nonspecific ST/T changes are present. Radiology/Procedures Radiology/Procedures [] Course & Med Decision Making Course & Med Decision Making Pertinent Labs studies reviewed. (See chart for details) []10:15 PM: Patient was seen by tele-psychiatry, and we both agree that the patient is appropriate for hospitalization. Efforts to find the patient in mental health will be undertaken at this time. Blood sugar has improved to the mid 200s. Pt's evening Lantus has been given. 05/16/19 6:00 AM: Patient condition remains stable. Care will be turned over to Dr. Villatoro at shift change, pending disposition and final placement. Report given. Dragon Disclaimer Dragon Disclaimer This electronic medical record was generated, in whole or in part, using a voice recognition dictation system. Departure Departure: Impression: Primary Impression: Depression Additional Impressions: Suicidal ideation Hyperglycemia Disposition: HOME/RESIDENCE PRIOR TO ADM Condition: STABLE Referrals: NASRA HARDEN MD (PCP) Problem Qualifiers TOBY CONN MD May 15, 2019 16:33
--- NOTE | 2019-05-15 16:52 | EKG ---
[address] [address] Test Date: 2019-05-15 Test Time: 16:49:01 Pat Name: JOSE KRAMER Department: Room: Gender: F Associate Editor: OSIRIS : 1995 Requested By: TOBY CONN Order Number: [id number] Reading MD: Measurements Intervals [employer] Rate: 83 P: 49 WY: 182 QRS: 19 QRSD: 96 T: 30 QT: 370 QTc: 435 Interpretive Statements SINUS RHYTHM QRS(T) CONTOUR ABNORMALITY CONSIDER ANTEROLATERAL MYOCARDIAL DAMAGE POSSIBLY ABNORMAL ECG RI6.01 Compared to ECG 04/02/2017 21:09:20 Sinus tachycardia no longer present
[2019-05-15 17:23] LABS: BASO % 0 % (0-3); EOS % 0 % (0-3); HEMATOCRIT 43.1 % (36.0-47.0); HEMOGLOBIN 14.1 g/dL (12.0-15.5); LYMPH # 1.2 x10^3/uL (1.0-4.8); LYMPH % 28 % (24-48); MEAN CORPUSCULAR HEMOGLOBIN 31 pg (25-35); MEAN CORPUSCULAR HGB CONC 33 g/dL (31-37); MEAN CORPUSCULAR VOLUME 93 fL (79-100); MONO # 0.2 x10^3/uL (0.0-1.1); MONO % 5 % (0-9); NEUT # 2.9 x10^3uL (1.8-7.7); NEUT % 67 % (31-73); PLATELET COUNT 217 x10^3/uL (140-400); RED BLOOD COUNT 4.62 x10^6/uL (3.50-5.40); RED CELL DISTRIBUTION WIDTH 14.1 % (11.5-14.5); WHITE BLOOD COUNT 4.3 x10^3/uL (4.0-11.0)
[2019-05-15 17:28] LABS: SALIC 0.4 mg/dL (2.8-20.0)
[2019-05-15 17:29] LABS: ACETAMIN < 2.0 mcg/mL (10-30); ETHANOL < 10 mg/dL (0-10)
[2019-05-15 17:31] LABS: ALBUMIN 3.4 g/dL (3.4-5.0); ALBUMIN/GLOBULIN RATIO 0.9 (1.0-1.7); CALCIUM 8.5 mg/dL (8.5-10.1); CREATININE 1.1 mg/dL (0.6-1.0); GFR 73.2; POTASSIUM 4.7 mmol/L (3.5-5.1); TOTAL BILIRUBIN 0.4 mg/dL (0.2-1.0)
[2019-05-15] MEDS ORDERED: IV NORMAL SALINE 1,000ML 1,000 ML IV ONE ×3 (17:45)
[2019-05-15] MEDS ORDERED: INSULIN REGULAR 100 UNIT/ML 3ML VIAL. IV ONE ×2 (18:00→19:45)
[2019-05-15 18:14] LABS: BARBITURATES NEG (NEG); BENZODIAZEPINES NEG (NEG); CANNABINOIDS NEG (NEG); COCAINE NEG (NEG); METHADONE NEG (NEG); OPIATES NEG (NEG); PHENCYCLIDINE NEG (NEG)
[2019-05-15 18:17] LABS: BILIRUBIN,URINE NEG (NEG); CLARITY,URINE CLOUDY; COLOR,URINE PINK; GLUCOSE,URINE 500 mg/dL (NEG); NITRITE,URINE NEG (NEG); RBC,URINE >40 /HPF (0-2); UROBILINOGEN,URINE 0.2 mg/dL (0.2 mg/dL)
[2019-05-15 18:18] LABS: BACTERIA,URINE FEW /HPF (0-FEW); SQUAMOUS EPITHELIAL CELL,UR OCC /LPF
[2019-05-15 18:18] LABS: PREG TEST PT QUAL NEGATIVE (NEG)
[2019-05-15 18:21] LABS: AMPHETAMINE/METHAMPHETAMINE NEG (NEG)
[2019-05-15] MEDS ORDERED: INSULIN GLARGINE SYRINGE. SQ SCH (21:00)
[2019-05-16] MEDS ORDERED: LEVO137T3 PO (07:47)
[2019-05-16] MEDS ORDERED: LOSA25TA11 PO (07:50)
[2019-05-16] MEDS ORDERED: INSU100C SQ (07:52)
[2019-05-16] MEDS ORDERED: INSULIN LISPRO 300 UNITS/3 ML VIAL. SQ ONE (09:49)
[2019-05-16] MEDS ORDERED: INSULIN LISPRO 300 UNITS/3 ML VIAL. SQ STA (09:57)
[2019-05-16] MEDS ORDERED: INSULIN LISPRO 300 UNITS/3 ML VIAL. SQ SCH (10:00)
[2019-05-16 10:30] VITALS: BP 130/92
== END 2019-05-16 11:48 ==
LOC: ER 15:59
DX: F32.9 Major depressive disorder, single episode, unspecified (principal); R45.851 Suicidal ideations; E11.65 Type 2 diabetes mellitus with hyperglycemia; F41.9 Anxiety disorder, unspecified; Z88.0 Allergy status to penicillin; Z88.1 Allergy status to other antibiotic agents
CPT/HCPCS: 36415; 80053; 80307; 80329; 81001; 82803; 82947; 84703; 85025; 87086; 93005; 96361; 96372; 96374; 96376; 99285; G0480; J1815; 82003; J7030

== ENCOUNTER 2020-11-19 01:12 | Emergency (ER) | payer OTHER ==
[~2020-11-19] VITALS: Ht 165.1 cm; Wt 86.4 kg
[~2020-11-19 01:12] MED LIST changes: +INSU100C SQ; +LEVO137T3 PO; -LISI-334 PO; +LISI20TA18 PO; +LOSA25TA11 PO
--- NOTE | 2020-11-19 02:03 | PHYS DOC ---
Past History Past Medical History: Anxiety, Depression, Diabetes, Other Past Surgical History: Other Additional Past Surgical Histo: thyroidectomy Smoking: Non-smoker Alcohol Use: Occasionally Drug Use: None Adult General HPI HPI Patient is a 25-year-old female with a history of diabetes who presents for evaluation due to abdominal pain, nausea, vomiting, poor p.o. intake for the past month or so. She reports she presents today because her symptoms have worsened and she is no longer to able to sleep. She reports her symptoms today feel very similar to her DKA presentations in the past however she reports her current symptoms are less severe than they normally are when she is in DKA. She also reports a headache that originates and the back of her head and goes to her front, however denies photo and phonophobia associated with the headache. She reports over the past month she has been using [id number] insulin because her slipcover cutter refuses to refill her normal insulin because she has not been seen in the office in over a year. Denies fevers at home, sick contacts, abdominal surgeries, changes in urination, changes in bowel habitus, shortness of breath, or chest pain. Review of Systems Review of Systems Fourteen body systems of review of systems have been reviewed. See HPI for per tinent positives and negative responses, other kelly all other systems are negative, non-pertinent or non-contributory Allergies Allergies Allergies Coded Allergies Type Severity Reaction Last Updated Verified Penicillins Allergy Intermediate Hives 05/15/19 Yes amoxicillin Allergy Intermediate HIVES 05/15/19 No Physical Exam Physical Exam Constitutional: Well developed, well nourished, no acute distress, non-toxic appearance. HENT: Normocephalic, atraumatic, bilateral external ears normal, oropharynx moist, no oral exudates, nose normal. Eyes: PERRLA, EOMI, conjunctiva normal, no discharge. Neck: Normal range of motion, no tenderness, supple, no stridor. Cardiovascular: Heart rate regular, sinus rhythm, no murmurs rubs or gallops Lungs & Thorax: Bilateral breath sounds clear to auscultation Abdomen: Bowel sounds normal, soft, no masses, no pulsatile masses. Nonsurgical abdomen, no peritoneal signs. Tenderness to palpation in the left upper quadrant. Negative McBurney's, negative Prado's, negative periumbilical tenderness, negative obturator sign bilaterally, negative psoas sign bilaterally, negative heel strike bilaterally. Skin: Warm, dry, no erythema, no rash. Back: No tenderness, no CVA tenderness. Extremities: No tenderness, no cyanosis, no clubbing, ROM intact, no edema. Neurologic: Alert and oriented X 3, grossly normal motor & sensory function, no focal deficits noted. Cranial nerves II through XII intact strength is equal and symmetric in the upper and lower extremities at 5 out of 5. No signs of cerebellar ataxia. Normal gait Psychologic: Affect normal, judgement normal, mood normal. EKG EKG EKG interpreted by me 0250 hours shows ventricular rate at 97 bpm normal axis and sinus rhythm though ST elevations or depressions negative STEMI normal EKG Radiology/Procedures Radiology/Procedures [] Heart Score C/O Chest Pain: No Risk Factors: Risk Factors: DM, Current or recent (<one month) smoker, HTN, HLP, family history of CAD, obesity. Risk Scores: Risk Factors: DM, Current or recent (<one month) smoker, HTN, HLP, family history of CAD, obesity. Course & Med Decision Making Course & Med Decision Making VSS. HPI non-specific with non-concerning PE ER workup unremarkable, no DKA. All results communicated to patient and mother at bedside Patient responded to ER intervention provided and was asking for discharge home at completion of IVF I discussed most likely diagnosis of poorly controlled T1DM vs a self-limiting GI issue vs other non-concerning, self-limiting disease but did disclose this might be an acute presentation of more concerning pathology Also disclosed this might be COVID-19 infection and offered testing, she accepted testing and now a PUI pending results Educated extensively on continued supportive care at home with PCP follow-up whenever deemed safe to do so. Strict return precautions were discussed with good understanding by patient and mother Emeli Disclaimer Dragon Disclaimer This electronic medical record was generated, in whole or in part, using a voice recognition dictation system. Departure Departure: Impression: Primary Impression: Fatigue Additional Impressions: Person under investigation for COVID-19 Type 1 diabetes mellitus Transaminitis Disposition: HOME / SELF CARE / HOMELESS Condition: IMPROVED Referrals: NASRA HARDEN MD (PCP) Additional Instructions: You were seen in the Emergency Department for evaluation of a fatigue. Your physical exam was nonconcerning. Your ER work-up did not show any emergent or surgical findings. It is likely you are suffering from a viral condition that should resolve with supportive care practices. You were swabbed today for the COVID-19 infection, results take approximately 24 hours to come back and in the meantime, you should stay home and self quarantine. I would call your primary care physician first thing in the morning and review ER visit today and schedule appointment for repeat evaluation next week or whenever safe to do so pending COVID-19 results. Coughing up blood, fever, and shortness of breath are examples of reasons to come back to the emergency department. Please return to the ED if you have new or worrisome symptoms that arise prior to outpatient follow-up. It was a pleasure to take care of you and I wish you the best going forward. Problem Qualifiers KITTY HU DO Nov 19, 2020 02:03
[2020-11-19] MEDS ORDERED: IV NORMAL SALINE 1,000ML 1,000 ML IV ONE (02:45)
--- NOTE | 2020-11-19 02:53 | EKG ---
[address] [address] Test Date: 2020-11-19 Test Time: 02:44:18 Pat Name: JOSE KRAMER Department: Room: Gender: F Stave Cutter: : 1995 Requested By: KITTY HU Order Number: [id number] Reading MD: Measurements Intervals [place] Rate: 97 P: 90 WV: 172 QRS: 19 QRSD: 90 T: 42 QT: 334 QTc: 428 Interpretive Statements SINUS RHYTHM NORMAL ECG RI6.02 No previous ECG available for comparison
[2020-11-19] MEDS ORDERED: diphenhydrAMINE 50 MG/ML VIAL IVP ONE (03:00)
[2020-11-19] MEDS ORDERED: PROCHLORPERAZINE 10 MG/2 ML VIAL. IV ONE (03:00)
[2020-11-19] MEDS ORDERED: KETOROLAC 15 MG/ML VIAL. IVP ONE (03:00)
[2020-11-19] MEDS ORDERED: ACETAMINOPHEN 325 MG TABLET PO ONE (03:15)
[2020-11-19 04:13] LABS: BASO % 0 % (0-3); EOS % 0 % (0-3); HEMATOCRIT 37.6 % (36.0-47.0); LYMPH # 1.7 x10^3/uL (1.0-4.8); LYMPH % 27 % (24-48); MEAN CORPUSCULAR HEMOGLOBIN 25 pg (25-35); MEAN CORPUSCULAR HGB CONC 32 g/dL (31-37); MEAN CORPUSCULAR VOLUME 79 fL (79-100); MONO # 0.5 x10^3/uL (0.0-1.1); MONO % 8 % (0-9); NEUT % 64 % (31-73); PLATELET COUNT 322 x10^3/uL (140-400); RED BLOOD COUNT 4.74 x10^6/uL (3.50-5.40); RED CELL DISTRIBUTION WIDTH 15.2 % (11.5-14.5); WHITE BLOOD COUNT 6.2 x10^3/uL (4.0-11.0)
[2020-11-19 04:23] LABS: ALBUMIN 3.5 g/dL (3.4-5.0); ALBUMIN/GLOBULIN RATIO 0.8 (1.0-1.7); CALCIUM 9.3 mg/dL (8.5-10.1); CREATININE 0.8 mg/dL (0.6-1.0); GFR 104.1; TOTAL BILIRUBIN 0.2 mg/dL (0.2-1.0); TOTAL PROTEIN 8.1 g/dL (6.4-8.2)
[2020-11-19 05:15] VITALS: BP 116/60
== END 2020-11-19 05:38 | disposition home or self-care (01) ==
LOC: ER 01:12
DX: E10.8 Type 1 diabetes mellitus with unspecified complications (principal); R74.01 Elevation of levels of liver transaminase levels; R53.83 Other fatigue; R10.12 Left upper quadrant pain; R11.2 Nausea with vomiting, unspecified; R51.9 Headache, unspecified; Z20.822 Contact with and (suspected) exposure to COVID-19; Z88.0 Allergy status to penicillin; Z88.1 Allergy status to other antibiotic agents
CPT/HCPCS: 36415; 80053; 82010; 82803; 82947; 83690; 84443; 85025; 93005; 96361; 96374; 96375; 99284; C9803; J0780; J1200; J1885; J7030; U0003; U0005